=== PATIENT | female | born 1955 | race Caucasian/White ===

== ENCOUNTER 2017-02-20 12:34 | Emergency (ER) | payer OTHER ==
--- NOTE | 2017-02-20 13:31 | ED PDOC ---
Syncope/Near Syncope/Dizziness Time Seen by Provider: 02/20/17 13:14 Chief Complaint (Nursing): Dizziness/Lightheaded Chief Complaint (Provider): dizziness History Per: Patient History/Exam Limitations: no limitations Onset/Duration Of Symptoms: Days (x 3) Additional Complaint(s): Konstantin Pablo is a 61 year old female, with a previous medical history of hypertension who presents to the ED with complaints of dizziness associated with intermittent episodes of palpitations and bilateral leg swelling ongoing for 3 days. She denies any loss of consciousness, headache, weakness, paresthesia or chest pain. PMD: none provided Past Medical History Reviewed: Historical Data, Nursing Documentation, Vital Signs Vital Signs: Last Vital Signs Temp 98.6 F 02/20/17 12:51 Pulse 84 02/20/17 12:51 Resp 18 02/20/17 12:51 BP 139/84 02/20/17 12:51 Pulse Ox 99 02/20/17 12:51 - Medical History PMH: HTN - Family History Family History: States: Unknown Family Hx - Home Medications Home Medications: Ambulatory Orders Medication Instructions Recorded Meclizine [Meclizine*] 25 mg PO Q8 #15 tab 02/20/17 amLODIPine [Norvasc] 5 mg PO DAILY #30 tab 02/20/17 - Allergies Allergies/Adverse Reactions: Allergies Allergy/AdvReac Type Severity Reaction Status Date / Time No Known Allergies Allergy Verified 02/20/17 12:51 Review of Systems ROS Statement: Except As Marked, All Systems Reviewed And Found Negative Eyes: Negative for: Vision Change Cardiovascular: Positive for: Palpitations. Negative for: Chest Pain Musculoskeletal: Positive for: Other (leg swelling ) Neurological: Positive for: Dizziness. Negative for: Weakness, Numbness, Headache Physical Exam - Reviewed Nursing Documentation Reviewed: Yes Vital Signs Reviewed: Yes - Physical Exam Appears: Positive for: Well, Non-toxic, No Acute Distress Head Exam: Positive for: ATRAUMATIC, NORMAL INSPECTION, NORMOCEPHALIC Skin: Positive for: Normal Color, Warm, DRY Eye Exam: Positive for: EOMI, Normal appearance, PERRL ENT: Positive for: Normal ENT Inspection Neck: Positive for: Normal, Painless ROM Cardiovascular/Chest: Positive for: Regular Rate, Rhythm Respiratory: Positive for: CNT, Normal Breath Sounds Gastrointestinal/Abdominal: Positive for: Normal Exam, Bowel Sounds, Soft. Negative for: Tenderness Back: Positive for: Normal Inspection Extremity: Positive for: Normal ROM. 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 Negative for: Motor/Sensory Deficits, Facial Droop - Laboratory Results Result Diagrams: 02/20/17 13:40 02/20/17 13:40 - ECG O2 Sat by Pulse Oximetry: 99 (RA) Pulse Ox Interpretation: Normal - Progress Re-evaluation Time: 15:52 Condition: Improved Medical Decision Making Medical Decision Making: Initial Plan: * EKG * labs * CT head w/o contrast * reevaluation Scribe Attestation: Documented by Felicity Li, acting as a scribe for Osiel Asencio MD. Provider Scribe Attestation: All medical record entries made by the Scribe were at my direction and personally dictated by me. I have reviewed the chart and agree that the record accurately reflects my personal performance of the history, physical exam, medical decision making, and the department course for this patient. I have also personally directed, reviewed, and agree with the discharge instructions and disposition. Disposition - Clinical Impression Clinical Impression: Dizziness - Patient ED Disposition Is Patient to be Admitted: No Counseled Patient/Family Regarding: Studies Performed, Diagnosis, Need For Followup, Rx Given - Disposition Referrals: [facility] [Outside] Disposition: Routine/Home Disposition Time: 15:53 Condition: FAIR Prescriptions: amLODIPine [Norvasc] 5 mg PO DAILY #30 tab Meclizine [Meclizine*] 25 mg PO Q8 #15 tab Instructions: Dizziness (ED) Forms: [employer] ([place]ian)
[2017-02-20 14:10] LABS: BASO # 0.1 K/uL (0.0-0.2); BASO % 0.8 % (0.0-2.0); EOS # 0.1 K/uL (0.0-0.7); HEMATOCRIT 34.5 % (34.0-47.0); LYMPH # 3.3 K/uL (1.0-4.3); LYMPH % 32.4 % (20.0-40.0); MEAN CELL VOLUME 90.3 fl (81.0-99.0); MEAN CORPUSCULAR HEMOGLOBIN 29.9 pg (27.0-31.0); MEAN CORPUSCULAR HGB CONC 33.1 g/dL (33.0-37.0); MEAN PLATELET VOLUME 7.4 fl (7.2-11.7); MONO # 0.8 K/uL (0.0-0.8); MONO % 7.4 % (0.0-10.0); NEUT % 58.4 % (50.0-75.0); WHITE BLOOD COUNT 10.2 K/uL (4.8-10.8)
[2017-02-20 14:11] LABS: CHLORIDE 102 mmol/L (98-107); SODIUM 137 mmol/l (132-148)
[2017-02-20 14:14] LABS: ALB/GLOB RATIO 1.2 (1.0-2.1); ALKALINE PHOSPHATASE 84 U/L (38-126); ALT/SGPT 27 U/L (9-52); AST/SGOT 24 U/L (14-36); BILIRUBIN,TOTAL 0.5 mg/dl (0.2-1.3); BLOOD UREA NITROGEN 26 mg/dl (7-17); CALCIUM 9.3 mg/dL (8.4-10.2); CARBON DIOXIDE 27 mmol/L (22-30); GFR AFRICAN-AMERICAN > 60; GLUCOSE,RANDOM 79 mg/dL (65-105); TOTAL PROTEIN 8.2 G/DL (6.3-8.2)
--- NOTE | 2017-02-20 14:18 | CT ---
PROCEDURE: CT HEAD WITHOUT CONTRAST. HISTORY: dizziness. ; rule out hemorrhage. COMPARISON: None available. TECHNIQUE: Axial computed tomography images were obtained through the head/brain without intravenous contrast. Radiation dose: Total exam DLP = 750.78 mGy-cm. This CT exam was performed using one or more of the following dose reduction techniques: Automated exposure control, adjustment of the mA and/or kV according to patient size, and/or use of iterative reconstruction technique. FINDINGS: HEMORRHAGE: No acute parenchymal, subarachnoid or extra-axial hemorrhage. BRAIN: Suspect minimal chronic periventricular white matter ischemic changes. Mild generalized volume loss. VENTRICLES: No evidence of obstructive hydrocephalus CALVARIUM: No acute calvarial fractures. PARANASAL SINUSES: Frontal sinuses are atretic. The remaining visualized paranasal sinuses well-developed and currently well-aerated. MASTOID AIR CELLS: Unremarkable as visualized. No inflammatory changes. OTHER FINDINGS: Changes of right-sided cataract surgery. IMPRESSION: No acute intracranial hemorrhage. Suspect minimal chronic white matter ischemic changes. Mild generalized volume loss.
[2017-02-20] MEDS ORDERED: Sodium Chloride 0.9% 1,000 ML IV STA (14:44)
[2017-02-20 16:08] VITALS: BP 122/76; PULSE 69; RESP 16; TEMP 99; O2SAT 100
--- NOTE | 2017-02-21 10:34 | CARD ---
APPROVED REPORT EKG Measurement Heart [id number] <Conclusion> Normal sinus rhythm Normal ECG
== END 2017-02-20 16:12 | disposition home or self-care (01) ==
LOC: H.ER 12:34
DX: R42 Dizziness and giddiness (principal); I10 Essential (primary) hypertension